=== PATIENT | female | born 1990 | race Caucasian/White ===

== ENCOUNTER 2023-04-05 15:12 | Outpatient (RCR) | payer OTHER, SELFPAY | END 2023-04-05 23:59 | disposition home or self-care (01) | LOC: RPT 15:12 | PROVIDERS: ATTENDING PHYSICIAN Family Medicine | DX: M76.31 Iliotibial band syndrome, right leg (principal); M67.952 Unspecified disorder of synovium and tendon, left thigh; Z87.81 Personal history of (healed) traumatic fracture; M67.951 Unspecified disorder of synovium and tendon, right thigh; M76.32 Iliotibial band syndrome, left leg; Z73.6 Limitation of activities due to disability | CPT/HCPCS: 97110; 97161 ==

== ENCOUNTER 2023-05-17 12:08 | Outpatient (RCR) | payer OTHER, SELFPAY ==
[2023-05-10 15:12] LABS: Vitamin B12 310 pg/ml (239-931)
== END 2023-05-17 23:59 | disposition home or self-care (01) ==
LOC: RPT 12:08
PROVIDERS: ATTENDING PHYSICIAN Family Medicine
DX: M76.31 Iliotibial band syndrome, right leg (principal); M76.32 Iliotibial band syndrome, left leg; Z87.81 Personal history of (healed) traumatic fracture; M67.952 Unspecified disorder of synovium and tendon, left thigh; M67.951 Unspecified disorder of synovium and tendon, right thigh
CPT/HCPCS: 36415; 82306; 82607; 97110

== ENCOUNTER 2023-06-22 03:49 | Observation (INO) | payer SELFPAY ==
[2023-06-21 21:32] VITALS: BP 141/93
[2023-06-21 21:55] LABS: % Basophils 0.2 % (0-2); % Eosinophils 3.1 % (0-6); % Immature Granulocytes 0.5 % (0-0.5); % Lymphocytes 3.2 % (20.5-51.1); % Monocytes 10.1 % (1.7-9.3); % Neutrophils 82.9 % (42.2-75.2); Absolute Eosinophils 0.3 10^3/uL (0-0.7); Absolute Lymphocytes 0.3 10^3/uL (1.2-3.4); Absolute Monocytes 0.9 10^3/uL (0.1-0.6); Absolute Neutrophils 7.3 10^3/uL (1.4-6.5); Hematocrit 42.4 % (37.0-47.0); Hemoglobin 14.6 g/dL (12.0-16.0); Mean Corp Hgb Conc. 34.4 g/dL (33.0-37.0); Mean Corpuscular Hgb 30.7 pg (27.0-31.0); Mean Corpuscular Volume 89.1 fL (81.0-99.0); Mean Platelet Volume 9.8 fL (7.4-10.4); Nucleated Red Blood Cells % 0 %; Platelet Count 218 10^3/uL (130-400); Red Blood Cell Count 4.76 10^6/uL (4.20-5.40); Red Cell Dist. Width 12.9 % (11.5-14.5); White Blood Cell Count 8.8 10^3/uL (4.8-10.8)
[2023-06-21 22:20] LABS: ALT (SGPT) 19 U/L (0-35); AST (SGOT) 31 U/L (14-36); Albumin 4.6 g/dl (3.5-5.0); Alkaline Phosphatase 66 U/L (38-126); Blood Urea Nitrogen 9 mg/dl (7-17); Calcium 9.3 mg/dl (8.4-10.2); Carbon Dioxide 24 mmol/L (22-30); Chloride 102 mmol/L (98-107); Glucose 108 mg/dl (70-99); HCG, Serum Qualitative Screen Negative; Lipase 32 U/L (23-300); Potassium 4.1 mmol/L (3.5-5.1); Sodium 133 mmol/L (135-145); Total Protein 7.4 g/dl (6.3-8.2); eGFR > 60.00
[2023-06-21 22:44] LABS: COVID-19 Antigen Negative (Negative)
--- NOTE | 2023-06-21 23:06 | ED.GENMED ---
History of Present Illness
General
Chief Complaint: Cold/Flu/URI Symptoms
Source: patient and family
Exam Limitations: none
Time Seen by Provider: 06/21/23 23:05
Travel History
Have you had any contact with someone who has COVID-19?: No
Do you have any symptoms of coronavirus? Fever > 100 degrees, chills, cough, shortness of breath, sore throat, loss of taste or smell, muscle aches, or headache?: Yes
Symptoms:: body aches, sore throat
History of Present Illness
History of Present Illness:
32-year-old female complaining of general body aches myalgias some sore throat some shortness of breath. Symptoms started in the last 24 hours. She does get some wheezing around her guinea pigs at times. Fever 101+ at home. Last Motrin at 4 PM.
Past History
Past History
ED Past Medical History: Psychiatric (Anxiety)
ED Past Surgical History: Orthopedic
Review of Systems
Review of Systems
All Other Systems: Not applicable
Constitutional: Reports fever
Respiratory: Reports cough and trouble breathing
Cardiac: Denies chest pain or syncope
ABD/GI: Reports vomiting; Denies abdominal pain
: Reports no symptoms
Phy Exam
Physical Exam
Physical Exam:
GENERAL: Alert and oriented. Mildly pale. Warm but mildly diaphoretic. Ambulated from the bathroom without difficulty but appears mildly tachypneic
EYE: Orbits normal.
NECK: Supple, no significant adenopathy.
ENT: Pharynx with mild diffuse erythema. No drooling or stridor. Speech normal
CARDIAC: Tachycardic and regular no murmur.
LUNGS: Mild diffuse expiratory wheezing
ABDOMEN: Soft, without focal tenderness or distention
NEUROLOGICAL: Alert and oriented , grossly non-focal
SKIN: Warm and dry, no rash or lesion, no discoloration, skin intact.
MUSCULOSKELETAL: No edema,no deformity.Good color
PSYCH: Normal and appropriate interaction.
Course
Orders/Labs/Results
Orders:
Orders
06/21/23 21:37
EKG [Electrocardiogram (*1)] Urgent
Reason for Study: Tachycardia
EKG- Treatment ONCE
06/21/23 21:38
Test Result ONCE
06/21/23 21:44
CBC/With Diff [Complete Blood Count/With Diff] Urgent
CMP [Comprehensive Metabolic Panel] Urgent
COVID-19 Antigen Urgent
Source: Nasal Swab
HCG, Serum Qualitative Screen Urgent
Lipase Urgent
Influenza A+B Rapid Molecular Urgent
[place] Source: Nasal Swab
Specimen Description:
06/21/23 23:16
Cardiac Monitoring- Treatment ONCE
IV Insert/Care/Rem.- Treatment PRN
0.9% Sodium Chloride 1000 ml [Nss] 1,000 ml IV BOLUS
Acetaminophen [Tylenol] 650 mg PO NOW STA
Dexamethasone Sod Phosphate [Decadron] 8 mg IV NOW STA
Ipratropium/Albuterol Sulfate [Duoneb] 3 ml INH R NOW STA
Ketorolac [Toradol] 15 mg IV NOW STA
Ondansetron Injectable [Zofran] 4 mg IV NOW STA
CR Chest - 2 Views Urgent
Comment:
Reason For Exam: wheezing cough
Pulse Ox/cont/shift [RESP] Stat
Quantity: 1
06/21/23 23:17
D-Dimer Urgent
06/22/23 01:01
0.9% Sodium Chloride 1000 ml [Nss] 1,000 ml IV BOLUS
Ketorolac [Toradol] 15 mg IV NOW STA
06/22/23 02:09
Ipratropium/Albuterol Sulfate [Duoneb] 3 ml INH R NOW STA
06/22/23 02:10
CefTRIAXone [Rocephin] 1,000 mg IV NOW STA
06/22/23 02:26
Doxycycline Hyclate [Vibramycin] 100 mg 0.9% Sodium Chloride 250 ml [Nss] 250 ml IV NOW
06/22/23 02:31
Urinalysis Reflex To Culture Urgent
Date Specimen was Collected: 06/22/23
Time Specimen was Collected: 01:12
Urine Microscopic Reflex Cult Urgent
06/22/23 03:04
Admit/Transfer Patient As Directed
Co-Sign Provider:
Level of Care: Observation services
Assign to:: Medical/Surgical
Physician / Group: Petar Toro - Hospitalists
Diagnosis: unspecified bronchitis with wheezing, mild respiratory distress
Reason for Hospitalization: unspecified bronchitis with wheezing, mild respiratory distress - IV steroids,
Abx, CT imaging
Expected length of stay greater than two midnights?: Yes
ELOS- Estimated Length of Stay in days: 3
I certify the patient meets the requirements for IP care: Yes
Code Status As Directed
Resuscitation Status: Full Code
06/22/23 03:53
Acetaminophen [Tylenol] 650 mg PO Q4HPRN PRN
Ipratropium/Albuterol Sulfate [Duoneb] 3 ml INH R Q4HPRN PRN
Ondansetron Injectable [Zofran] 4 mg IV Q6HPRN PRN
06/22/23 03:53
CT Chest W/o Iv Contrast Routine
Comment: smoker since age 15
Reason For Exam: further eval perihilar area
Activity As Directed
Activity Level: As Tolerated
Vital Signs As Directed
Frequency: Per unit guidelines
DX Deep Vein Thrombosis Video Routine
06/22/23 05:22
Basic Metabolic Panel IN AM
06/22/23 05:23
Complete Blood Count/No Diff IN AM
Procalcitonin IN AM
PCT Algorithmm Indication: Respiratory
06/22/23 Breakfast
Regular
At Your Request: Full Participation
06/22/23 08:00
Dexamethasone Sod Phosphate [Decadron] 4 mg IV Q8H
Famotidine [Pepcid] 20 mg PO BID
Ipratropium/Albuterol Sulfate [Duoneb] 3 ml INH R QID
Nicotine [Nicoderm Transdermal] 14 mg TRANSDERM DAILY
06/22/23 18:00
Enoxaparin Sodium [Lovenox] 40 mg SC QPM
Montelukast Sodium [Singulair] 10 mg PO QPM
Abnormal Lab Results
06/21/23 06/22/23
21:44 02:31
Absolute Neuts (auto) 7.3 H 10^3/uL
(1.4-6.5)
Absolute Lymphs (auto) 0.3 L 10^3/uL
(1.2-3.4)
Absolute Monos (auto) 0.9 H 10^3/uL
(0.1-0.6)
Neutrophils % 82.9 H %
(42.2-75.2)
Lymphocytes % 3.2 L %
(20.5-51.1)
Monocytes % 10.1 H %
(1.7-9.3)
Sodium 133 L mmol/L
(135-145)
Glucose 108 H mg/dl
(70-99)
Total Bilirubin 2.0 H mg/dl
(0.2-1.3)
Urine Ketones 2+ A
(Negative)
Ur Occult Blood Reflex 1+ A
(Negative)
Urine RBC 7-10 A /HPF
(0-2)
Urine Bacteria (Reflex) Few A
(Negative)
06/21/23 21:44
06/21/23 21:44
Vital Signs
Initial and Last Documented VS:
Initial Vital Signs
Temp Pulse Resp BP Pulse Ox
100.3 F 138 20 141/93 96
06/21/23 21:32 06/21/23 21:32 06/21/23 21:32 06/21/23 21:32 06/21/23 21:32
Last Documented Vital Signs
Temp Pulse Resp BP Pulse Ox
99 F 87 16 105/54 97
06/23/23 07:00 06/23/23 09:39 06/23/23 09:39 06/23/23 07:00 06/23/23 09:51
*Critical Care Note
Total Time (30-74mins, 75-104mins- exclusive of procedures): Not Applicable
Update Note
Update Note:
0200... Patient clearly improved but still with diffuse expiratory wheezing. Pulse ox reasonable but tachycardic in the 120s diffuse wheezing remains moderately uncomfortable. Warrants inpatient management. Likely viral however with questionable
infiltrate will cover with antibiotics
ED Attending Note
-
Portions of this chart may have been created with voice recognition software.� Occasional wrong word or��sound alike� substitutions may have occurred due to the inherent limitations of voice recognition software.
Discharge Plan
Departure
Patient Disposition: Admit
Date of Disposition: 06/22/23
Time of Disposition: 02:14
Presentation/result/management discussed w/ accepting MD/DO: Hospitalist
Discharge Problem:
Severe bronchitis
Interventions
Interventions:
*Risk Screen - Suicide Last Done: 06/21/23 23:35
*General Assessment Last Done: 06/21/23 23:35
*Neglect/Abuse Screening Last Done: 06/21/23 23:35
ED- Fall Risk Assessment Last Done: 06/21/23 23:35
*ED COVID-19 Vaccine History Last Done: 06/21/23 23:35
*Nursing Disposition Last Done: 06/22/23 19:37
ED- Pulmonary Assessment Last Done: 06/22/23 11:23
Discharge Date and Time
Discharge Date/Time: 06/22/23 19:38
[2023-06-21] MEDS: ZOFRAN 4 MG IV (23:41)
[2023-06-21] MEDS: TORADOL 15 MG IV (23:43)
[2023-06-21] MEDS: NSS 1000 IV (23:43)
[2023-06-21] MEDS: DUONEB 3 ML INH (23:48)
[2023-06-21] MEDS: DECADRON 8 MG IV (23:48)
[2023-06-21 23:55] VITALS: BP 127/87
[2023-06-21 23:56] VITALS: BMI 25.3
[2023-06-21] MEDS: TYLENOL 650 MG PO (23:59)
[2023-06-22] VITALS (7 sets, daily range): BP systolic 104–134; BP diastolic 61–88; BMI 24.9
[2023-06-22 00:44] LABS: D-Dimer < 0.27 ug/mlFEU (0.00-0.50)
[2023-06-22] MEDS: NSS 1000 IV (01:20)
[2023-06-22] MEDS: TORADOL 15 MG IV ×2 (01:20→07:03)
[2023-06-22] MEDS: DUONEB 3 ML INH ×5 (02:22→19:39)
[2023-06-22] MEDS: ROCEPHIN 1000 MG IV (02:24)
[2023-06-22] MEDS: VIBRAMYCIN 260 MG IV (02:41)
--- NOTE | 2023-06-22 02:56 | HPS.HSE ---
Addendum entered and electronically signed by Petar Toro MD 06/27/23 08:09:
Allergies
Allergy/AdvReac Type Severity Reaction Status Date / Time
lamotrigine Allergy Rash Verified 06/21/23 21:36
Home Medications
cholecalciferol (vitamin D3) 25 mcg (1,000 unit) tablet 25 - 75 mcg PO DAILY PRN supplement 06/22/23
ibuprofen 200 mg capsule (Advil Liqui-Gel) 400 mg PO BIDPRN PRN mild pain 06/22/23
therapeutic multivitamin 1 tab PO .AFTERNOON Supplement 06/22/23
albuterol sulfate 90 mcg/actuation aerosol inhaler 2 puff inhalation Q6H PRN shortness of breath or wheezing #8.5 grams 06/23/23
doxycycline monohydrate 100 mg capsule 100 mg PO BID #8 caps 06/23/23
ondansetron 4 mg disintegrating tablet 4 mg PO Q8H PRN nausea and vomiting 5 days #15 tabs 06/23/23
oxycodone 5 mg tablet 5 mg PO [id number] PRN Mod sev pain #10 tabs 06/23/23
prednisone 10 mg tablet See Rx Instructions .Route .COMPLEX #30 tabs 06/23/23
Original Note:
Family Physician
-
Family Physician: Jenny Saldana
Chief Complaint
-
cold symptoms
History of Present Illness
32 y/o, active smoker since age 15, hx of anxiety, hx of 'allergies to my guinea pig pets' presents to ER for 1 day history of generalized body aches. Associated symptoms include myalgias, SOB and sore throat and headache. She reports wheezing but
also states she develops wheezing around her guinea pigs. She reports fever 101 at home; took Motrin with relief. No GI complaints. No other complaints.
In ER, given several rounds of nebs, IV steroids, IV abx but remains dyspneic and wheezing - admitted.
Medical History
Past Medical History
Past Medical History: Reports Psychiatric (anxiety, possible asthma)
Past Surgical History: Reports None
Social History
Tobacco: Smoker
Alcohol: None
Drug: None
Employment: Employed
Family History
Family History: Not pertinent
Allergies / Home Medications
Allergies reflects when Allergies were last updated in [employer].
Home Medications with original date entered in [employer]
Allergy/Medication List:
Allergies
Allergy/AdvReac Type Severity Reaction Status Date / Time
lamotrigine Allergy Rash Verified 06/21/23 21:36
Review of Systems
-
A 12 point ROS was completed and negative except as noted: Yes
Physical Exam
Vital Signs
Vital Signs
Temp Pulse Resp BP Pulse Ox
100.3 F 129 21 121/77 96
06/21/23 21:32 06/22/23 02:45 06/22/23 02:45 06/22/23 01:00 06/22/23 00:00
Physical Exam
General: Respiratory Distress (mild)
HEENT: NormoCephalic and Anicteric
Respiratory: Wheezes; No Rales or Rhonchi
Cardiac: S1/S2, Regular Rhythm and Tachycardia (post neb)
GI: Soft and Non Tender
Musculoskeletal: No Edema
Neuro: AO x 3
Psych: Calm
Laboratory Results
-
06/21/23 21:44
06/21/23 21:44
Laboratory Results
Total Bilirubin 2.0 mg/dl (0.2-1.3) H 06/21/23 21:44
AST 31 U/L (14-36) 06/21/23 21:44
ALT 19 U/L (0-35) 06/21/23 21:44
Alkaline Phosphatase 66 U/L (38-126) 06/21/23 21:44
Lipase 32 U/L (23-300) 03/05/24 21:44
Data Reviewed
-
Lab Data: Labs Reviewed by me
Impression/Plan
-
Assessment:
mild respiratory distress
Wheezing
- ddx: asthmatic bronchitis vs viral bronchitis vs PNA vs other
- COVID/Flu negative; but only 24 hours of symptoms to date, may consider repeating
- CXR With possible subhilar PNA - started on Rocephin, Doxy in ER - will hold further until AM procal resulted
- nebs prn and standing
- IV Steroids to continue; still currently wheezing
- add Montelukast for possible allergic component. Would benefit from OP Allergy eval if allergic to some of her animals.
- given extensive smoking history since age 15, will obtain CT chest to further eval subhilar area
Active tobacco smoker
- cessation encouraged
Anxiety
DVT ppx: Lovenox
Code: Full
[2023-06-22 03:12] LABS: Urine Albumin Negative (Neg - Trace); Urine Bilirubin Negative (Negative); Urine Character Clear (Clear); Urine Color Yellow; Urine Glucose Negative (Negative); Urine Ketone 2+ (Negative); Urine Leukocyte Negative (Negative); Urine Nitrite Negative (Negative); Urine Occult Blood 1+ (Negative); Urine Urobilinogen Negative (Neg - 1+)
[2023-06-22 03:34] LABS: Urine Bacteria Few (Negative); Urine White Cell 0-2 /HPF (0-5)
[2023-06-22 05:38] LABS: Hematocrit 39.2 % (37.0-47.0); Hemoglobin 13.5 g/dL (12.0-16.0); Mean Corp Hgb Conc. 34.4 g/dL (33.0-37.0); Mean Corpuscular Hgb 30.8 pg (27.0-31.0); Mean Corpuscular Volume 89.5 fL (81.0-99.0); Mean Platelet Volume 10.2 fL (7.4-10.4); Platelet Count 197 10^3/uL (130-400); Red Blood Cell Count 4.38 10^6/uL (4.20-5.40); Red Cell Dist. Width 12.9 % (11.5-14.5); White Blood Cell Count 7.1 10^3/uL (4.8-10.8)
[2023-06-22] MEDS: TYLENOL 650 MG PO (06:02)
[2023-06-22 06:03] LABS: Blood Urea Nitrogen 7 mg/dl (7-17); Calcium 8.7 mg/dl (8.4-10.2); Carbon Dioxide 17 mmol/L (22-30); Chloride 108 mmol/L (98-107); Estimated Creatinine Clearance 111 ml/min; Glucose 184 mg/dl (70-99); Potassium 3.8 mmol/L (3.5-5.1); Sodium 139 mmol/L (135-145); eGFR > 60.00
[2023-06-22] MEDS: FLUSH (NSS) 1 FLUSH IV (06:03)
[2023-06-22] MEDS: ZOFRAN 4 MG IV (06:06)
[2023-06-22 06:19] LABS: Procalcitonin < 0.05 ng/ml (0.0-0.25)
[2023-06-22] MEDS: NICODERM TRANSDERMAL 14 MG TRANSDERM (07:46)
[2023-06-22] MEDS: PEPCID 20 MG PO ×2 (07:46→20:35)
[2023-06-22] MEDS: DECADRON 4 MG IV ×2 (07:46→16:50)
[2023-06-22] MEDS: VIBRAMYCIN 100 MG PO ×2 (08:21→20:35)
--- NOTE | 2023-06-22 08:33 | CON.PUL ---
Consultation
Consultation Request
Date/Time Consultation Requested: 06/22/23- AM
Date/Time Consultation Performed: , 06/22/23- AM
Requesting Provider: hospitalist
Performing Provider: , Dr. Simental
Reason for Consultation: , shortness of breath
Medical History
-
Chief Complaint: , shortness of breath
History of Present Illness:
32-year-old smoking female with history of anxiety and allergies to her guinea pigs presented with generalized body aches. She refers to as reaction to her anxiety as well as chest tightness, wheezing, shortness of breath as well as a
fever-pulmonary consulted for asthma exacerbation 06/22/23. . She has never been told she had asthma, but, since she got her gait takes. She feels like she is allergic to him. She developed shortness of breath, wheezing, nonproductive cough,
dyspnea on exertion. She also had some fevers. She had some muscle aches around her neck and back, which she related to anxiety. She does not complain of any abdominal pain, nausea, vomiting, leg swelling or weakness.
Past Medical History
Past Medical History: None ( Allergies. Anxiety. Suspected asthma.)
Social History
Tobacco: Smoker ( Down to 4 cigarettes nightly)
Alcohol: None
Living: With Family
Occupational Exposures: . No known asbestos exposure
Environmental Exposures: . No known tuberculosis exposure
Family History
Family History: Reviewed & Not Pertinent
Allergies / Home Medications
Allergies
Allergy/AdvReac Type Severity Reaction Status Date / Time
lamotrigine Allergy Rash Verified 06/21/23 21:36
Home Medications
Medication Instructions Recorded Confirmed Last Taken Type
No Meds [No Current Medications] 06/22/23 06/22/23 Unknown History
Review of Systems
-
Unable to Obtain full review of systems at this time due to: Other ( per HPI)
Vitals / Labs / Diagnostic Testing
Vital Signs
Temp Pulse Resp BP Pulse Ox
99.1 F 78 18 128/82 96
06/22/23 07:05 06/22/23 08:27 06/22/23 08:27 06/22/23 07:05 06/22/23 08:27
Lab Data
06/22/23 05:23
06/22/23 05:22
Microbiology
06/21/23 21:44 Nasal Swab Influenza Types A & B (NEHA) - Final
Negative for Influenza A & B, NAAT
Negative results must be combined with clinical observations
and patient history.
Nucleic Acid Amplification test (NAAT)performed on the
[employer] platform.
Diagnostic Testing:
Physical Exam
-
Exam:
HEENT atraumatic normocephalic and anicteric. Heart was regular without murmur. . Chest with diminished breath sounds, prolonged expiratory time and expiratory wheezes Integument without rashes or icterus. Neurologic exam without weakness or
numbness. Abdomen soft and nondistended. The patient had no JVD, cyanosis, clubbing or edema.
Assessment
-
32-year-old smoking female with history of anxiety and allergies to her guinea pigs presented with generalized body aches. She refers to as reaction to her anxiety as well as chest tightness, wheezing, shortness of breath as well as a
fever-pulmonary consulted for asthma exacerbation 06/22/23.
Asthma with acute exacerbation..
Absolute eosinophils-300
Bronchitis
Anxiety.
Conditions present prior to admission:
Allergies
Active smoker.
Asthma suspected
Plan
Respiratory decompensation, likely due to underlying asthma with acute mild to moderate exacerbation.
Supplemental oxygen if needed.
Nebulizers.
Mucolytic's
Decadron 4 mg IV every 8. Hours.
Singulair continues
Doxycycline added for atypical coverage
Smoking and vaping cessation
Nicotine patch.
Anxiolytics per primary team.
DVT prophylaxis-on Lovenox.
Nutrition
Early mobilization.
Outpatient pulmonary/allergy follow-up and workup including ongoing smoking cessation counseling, follow-up CT chest, PFTs, allergy testing, etc.
Data:
Chest x-ray 06/21/23-NAD.
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
Data Reviewed
-
Radiology: Report reviewed by me
CT Scan: Image personally visualized and interpreted and Report reviewed by me
Medical Tests (Nuc Med, Echo etc): Report reviewed by me
Labs: Labs reviewed by me
Old Records: Reviewed
Total Time Spent with Patient (in minutes): 55
--- NOTE | 2023-06-22 08:38 | W.PN.UPDATE ---
Update Note
Progress Note Update
seen and examined
Non billable note
Off of o2 - patient took herself her off. maintain on steroids
CT chest images reviewed, have bilateral small ground glass opacities -pt denies vaping- smokes cig only - start back on doxycycline for atypical coverage
Pulmo consulted for help as well.
Nausea - does not feel can have food, will try different nausea meds if not better. diet as tolerated at this point
Back pain - lumbago, denies trauma/spinal sx - ordered extra strength tylenol and tramadol
--- NOTE | 2023-06-22 08:46 | EDRN ---
Assumed care. Pt is in ER 18 as a medsurg HOLD level of care. She is AAOx4, appearts anxious. No resp distress noted. VS stable. INT noted Lt arm, intact. Complaining of generalized pain. Received Toradol at change of shift and at 0800 when I went
in to give AM meds, was lying quietly in the dark room. Given AM care supplies, breakfast ordered. Seen by hospitalist.
Lungs- sl decreased, no wheezes or crackles
HR reg.
On room air
Ambulatory in the room with steady gait
--- NOTE | 2023-06-22 09:22 | EDRN ---
Calls nurse; tearful : ' I don't know why I feel this way, it feels like my body is trying to kill me'. Reasurred. Pharmacy is actively verifying pain meds. Zofran not available until 1200. Did eat breakfast though
[2023-06-22] MEDS: ULTRAM 25 MG PO (09:41)
--- NOTE | 2023-06-22 09:43 | EDRN ---
pt removed nicoderm patch as she felt it was making her nauseated, provider aware.
--- NOTE | 2023-06-22 10:25 | EDRN ---
PT noting continuing pain post Toradol of 6/10. Was given Tramadol 25 mg At 0940. She states it has not helped at all. Her pain level is still 6/10. She has persistent nausea (dose of Zofran given at 0600 as well). She wants something else. Provider
texted
[2023-06-22] MEDS: REGLAN 5 MG IV ×2 (10:45→21:27)
--- NOTE | 2023-06-22 10:50 | EDRN ---
Reglan administered for nausea. PT reminded that pain meds are ordered depending on pt's level of pain, so I asked her to not ' worry about being perceived as dramatic ( her words), and to be honest and if she's having severe pain, to say so, as I
want her to be treated adequately.
She says her pain actually an 8.
[2023-06-22] MEDS: ROXICODONE 5 MG PO ×3 (10:52→21:21)
--- NOTE | 2023-06-22 13:27 | CM ---
CM met with mother of patient who was sleeping in ED room. Patient and mother live in one level home. Patient works as a front line leader.
She is independent but has been having trouble standing for her full shift. She was seeing PT at .
PCP Inna Saldana [place] [facility] [place] [facility] Even though Observation no letter given as no insurance.
PHarmacy: [facility] in [place].
PLAN: home no needs.
[2023-06-22] MEDS: TYLENOL 1000 MG PO (14:59)
[2023-06-22] MEDS: LOVENOX 40 MG SC (16:51)
[2023-06-22] MEDS: SINGULAIR 10 MG PO (16:52)
--- NOTE | 2023-06-22 19:46 | PTCARENOTE ---
Patient received from the ED via wheelchair. Patient AAOx3. VSS. Patient walked into the room. Steady on feet. Patient made comfortable in the room. Call gudino is within reach.
[2023-06-23] MEDS: DECADRON 4 MG IV ×2 (00:29→10:34)
[2023-06-23] MEDS: ROXICODONE 5 MG PO (01:54)
[2023-06-23] MEDS: TYLENOL 1000 MG PO ×2 (03:57→13:23)
[2023-06-23 07:00] VITALS: BP 105/54
[2023-06-23 07:21] LABS: Hematocrit 39.8 % (37.0-47.0); Hemoglobin 13.9 g/dL (12.0-16.0); Mean Corp Hgb Conc. 34.9 g/dL (33.0-37.0); Mean Corpuscular Hgb 30.9 pg (27.0-31.0); Mean Corpuscular Volume 88.4 fL (81.0-99.0); Mean Platelet Volume 10.5 fL (7.4-10.4); Platelet Count 207 10^3/uL (130-400); Red Cell Dist. Width 13.2 % (11.5-14.5); White Blood Cell Count 8.2 10^3/uL (4.8-10.8)
[2023-06-23 08:14] LABS: Blood Urea Nitrogen 9 mg/dl (7-17); Carbon Dioxide 22 mmol/L (22-30); Chloride 103 mmol/L (98-107); Estimated Creatinine Clearance 111 ml/min; Glucose 120 mg/dl (70-99); Potassium 4.3 mmol/L (3.5-5.1); Sodium 137 mmol/L (135-145); eGFR > 60.00
--- NOTE | 2023-06-23 08:50 | W.PN.HOSP.TC ---
Today's Communication/Plan
-
d/c home
Assessment / Plan
Assessment / Plan
Acute bronchitis
Suspected asthma and flare up
Small ground glass opacities
- COVID/Flu negative
- Ct chest reviewed -diffuse small groundglass opacities. -Patient denies vaping.
- Discussed with pulmonology. Discharging with steroid taper/inhaler/doxycycline
Active tobacco smoker
- cessation encouraged
Back pain
- providing dose of tramadol, did not help , given oxycodone
Nausea
- symptomatic care, tolerating diet
Anxiety
DVT ppx: Lovenox
Code: Full
More than 30 minutes spent in discharge including
Final examination of the patient
Summarizing hospital stay
Instructions for continuing care to all relevant caregivers
Preparation of discharge records, prescriptions, and referral forms
Total time spent (in minutes): 38 mins
Anticipated Discharge: Today
Subjective/Interval History
-
Date of Service: June 23, 2023
breathing better
not on o2
Objective Data
-
Labs:
Laboratory Results
06/23/23
06:19
WBC 8.2
Hgb 13.9
Hct 39.8
Plt Count 207
Sodium 137
Potassium 4.3
Chloride 103
Carbon Dioxide 22
BUN 9
Creatinine 0.6
Glucose 120 H
Calcium 9.0
Vital Signs:
Vital Signs
Temp Pulse Resp BP Pulse Ox
99 F 103 18 105/54 99
06/23/23 07:00 06/23/23 07:00 06/23/23 07:00 06/23/23 07:00 06/23/23 07:00
I&O
06/22/23 06/23/23 06/24/23
06:59 06:59 06:59
Intake Total 720 / 720
Balance 720 / 720
Review of Systems
-
Respiratory: Reports No Symptoms
Cardiac: Reports No Symptoms
Abdomen/GI: Reports No Symptoms
Physical Exam
-
General: No Apparent Distress and Comfortable
HEENT: Negative Oxygen
Respiratory: Wheezes (minimal)
Cardiac: Regular Rhythm and S1/S2; Negative Murmur or Rub
GI: Soft
Musculoskeletal: No Edema
Neuro: Awake, Alert, Oriented, No Motor Deficits and Nonfocal/Grossly Intact
Psych: Calm
--- NOTE | 2023-06-23 08:55 | W.DCSUMMARY ---
Discharge Summary
Discharge Data
Date of Admission: 06/22/23
Date of Discharge: 06/23/23
-
Pending Results: No
Hospital Course
Discharging Physician : Dr Robe Cannon
Disposition : To home
Primary care physician : Dr Jenny Saldana
Principal Discharge diagnosis :
Acute bronchitis
Possible asthma and flareup
Community-acquired pneumonia
Back pain
Nausea
Chronic Discharge diagnosis :
Tobacco abuse
Anxiety
Hospital Course :
Patient is a 32-year-old female with above-mentioned past medical history came to ER with new onset of shortness of breath, sore throat, cough and headache. Patient is active smoker and on examination was noted to having significant wheezing
bilateral lung mcconnell. Patient also had reported fever of 101 at home. Although patient does not have any previous diagnosis of any pulmonary problems clinical was felt to having possible asthma and flareup. Patient was started on steroids and
nebulizer therapies for chest x-ray was done which was showing questionable perihilar opacities. A follow-up CT chest was done which ruled out any perihilar abnormalities, did show significant bronchitis and diffuse bilateral faint opacities.
Pulmonology was involved in care and patient was started on doxycycline for atypical coverage. Pulmonology was involved in care and evaluated patient. Recommended patient to follow-up in office for further testing. Patient symptoms improved in 48
hours and was discharged on tapering course of steroid/inhaler and doxycycline.
Patient also had worsening of lower back pain, usually uses Tylenol. Needed to be given tramadol and oxycodone. Short course of oxycodone provided at discharge. Patient also had some nausea without vomiting and improved with symptomatic care.
Patient instructed to follow-up with pulmonology in office postdischarge
Important imaging findings :
CT chest
1. � SEVERE BILATERAL BRONCHITIS and small regions of ground-glass opacity in the right middle lobe, left upper lobe, and right upper lobe. Diagnostic possibilities are (1) acute infection, (2) vaping-associated lung disease (e-cigarette or vaping
product use-associated lung injury (EVALI), or (3) other inflammatory lung disease.
2. � Mild mediastinal lymphadenopathy.
3. � Thoracic Scheuermann's disease.
Procedure findings :
None
Discharge Plan
-
Patient Disposition: Home (Routine Discharge)
Discharge Diagnosis/Procedures: Acute bronchitis, suspected asthma flare up
Condition: Fair
Diet: Regular
Activity: As tolerated
Driving Restrictions: As prior to admission
Bathing Restrictions: OK to Shower
Referrals:
Jenny Saldana NP [Family Provider] - in one week
Willian Simental MD [Active] - in one to two weeks
(or [employer]
Eventual PFTs, follow-up CT chest, allergy testing, smoking cessation counseling)
Prescriptions:
New
prednisone 10 mg Tablet
See Rx Instructions .ROUTE .COMPLEX Qty: 30 0RF
Rx Instructions:
Take By Mouth:
40 mg daily x3 days, 30 mg daily x3 days,
20 mg daily x3 days, 10 mg daily x3 days.
doxycycline monohydrate 100 mg capsule
100 mg PO BID Qty: 8 0RF
albuterol sulfate 90 mcg/actuation HFA aerosol inhaler
2 puff inhalation Q6H PRN (Reason: shortness of breath or wheezing) Qty: 8.5 0RF
oxycodone 5 mg tablet
5 mg PO [id number] PRN (Reason: Mod sev pain) Qty: 10 0RF
ondansetron 4 mg tablet,disintegrating
4 mg PO Q8H PRN (Reason: nausea and vomiting) 5 Days Qty: 15 0RF
Continued
ibuprofen [Advil Liqui-Gel] 200 mg Capsule
400 mg PO BIDPRN PRN (Reason: mild pain)
therapeutic multivitamin Tablet
1 tab PO .AFTERNOON
cholecalciferol (vitamin D3) 25 mcg (1,000 unit) Tablet
25 - 75 mcg PO DAILY PRN (Reason: supplement)
Discharge Orders:
Discharge Patient (As Directed); Ordered 06/23/23
Ordered By: Robe Cannon
[2023-06-23] MEDS: DECADRON IV ×2 (08:59→09:07)
[2023-06-23] MEDS: PEPCID 20 MG PO (09:00)
[2023-06-23] MEDS: NICODERM TRANSDERMAL TRANSDERM ×2 (09:00→10:17)
[2023-06-23] MEDS: FLUSH (NSS) IV (09:01)
[2023-06-23] MEDS: VIBRAMYCIN 100 MG PO (09:01)
[2023-06-23] MEDS: DUONEB 3 ML INH (09:37)
--- NOTE | 2023-06-23 09:51 | W.PN.PUL.V3 ---
Today's Communication / Plan
-
.
We not she
Increase activity.
Antibiotics.
Prednisone taper.
Outpatient pulmonary follow-up
Assessment
-
32-year-old smoking female with history of anxiety and allergies to her guinea pigs presented with generalized body aches. She refers to as reaction to her anxiety as well as chest tightness, wheezing, shortness of breath as well as a
fever-pulmonary consulted for asthma exacerbation 06/22/23.
Asthma with acute exacerbation..
Absolute eosinophils-300
Bronchitis
Anxiety.
Conditions present prior to admission:
Allergies
Active smoker.
Asthma suspected
Plan
Respiratory decompensation, likely due to underlying asthma with acute mild to moderate exacerbation.
Supplemental oxygen if needed.
Nebulizers.
Mucolytic's.
Change Decadron to prednisone with taper
Singulair continues
Doxycycline added for atypical coverage
Smoking and vaping cessation
Nicotine patch.
Anxiolytics per primary team.
DVT prophylaxis-on Lovenox.
Nutrition
Early mobilization.
Outpatient pulmonary/allergy follow-up and workup including ongoing smoking cessation counseling, follow-up CT chest, PFTs, allergy testing, etc.
Data:
Chest x-ray 06/21/23-NAD.
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
Subjective Data
-
Date of Service:
Date of Service: June 23, 2023
Chief Complaint: Pulmonary Follow Up and Dyspnea Follow Up
Subjective:
Feels better, less wheezy, no chest pain or abdominal pain, muscle tightness from anxiety, improved
Review of Systems
General: Other ( per HPI)
Objective Data
Data Reviewed
Vital Signs / I&O:
Vital Signs
Temp Pulse Resp BP Pulse Ox
99 F 87 16 105/54 97
06/23/23 07:00 06/23/23 09:39 06/23/23 09:39 06/23/23 07:00 06/23/23 09:39
Intake and Output
06/22/23 06/23/23 06/24/23
06:59 06:59 06:59
Intake Total 720 / 720
Balance 720 / 720
SaO2: 97
Labs/Micro/Reports
Lab Data
06/23/23 06:19
06/23/23 06:19
Microbiology
06/21/23 21:44 Nasal Swab Influenza Types A & B ([facility]) - Final
Negative for Influenza A & B, NAAT
Negative results must be combined with clinical observations
and patient history.
Nucleic Acid Amplification test (NAAT)performed on the
[employer] platform.
[2023-06-23] MEDS: REGLAN 5 MG IV (10:34)
[2023-06-23] MEDS: FLUSH (NSS) 2 FLUSH IV (10:35)
== END 2023-06-23 15:02 | disposition home or self-care (01) ==
LOC: 4 EAST ACU 03:49
PROVIDERS: Emergency Medicine; ADMITTING PHYSICIAN Internal Medicine; ATTENDING PHYSICIAN Hospitalist; CONSULT PHYSICIAN Internal Medicine Critical Care Medicine; FAMILY PHYSICIAN Nurse Practitioner Adult Health
DX: J18.9 Pneumonia, unspecified organism (principal); J20.9 Acute bronchitis, unspecified; F17.210 Nicotine dependence, cigarettes, uncomplicated; F41.9 Anxiety disorder, unspecified; M54.50 Low back pain, unspecified; Z11.52 Encounter for screening for COVID-19; Z79.899 Other long term (current) drug therapy
CPT/HCPCS: 71046; 71250; 80048; 80053; 81003; 81015; 83690; 84145; 84703; 85025; 85027; 85379; 87502; 87811; 93005; 94640; 94760; 96361; 96365; 96375; 96376; 99285; 99406; G0378

== ENCOUNTER → 2023-07-19 14:42 | Outpatient (REF) | payer OTHER, SELFPAY ==
[2023-07-19 15:33] LABS: Vitamin D, 25-OH*** 35.6 ng/mL (30-80)
[2023-07-19 16:07] LABS: Vitamin B12 349 pg/ml (239-931)
== END ==
LOC: REG 14:42
PROVIDERS: ATTENDING PHYSICIAN Nurse Practitioner Acute Care
DX: E55.9 Vitamin D deficiency, unspecified (principal); E53.8 Deficiency of other specified B group vitamins
CPT/HCPCS: 36415; 82306; 82607

== ENCOUNTER → 2023-10-28 10:47 | Outpatient (REF) | payer OTHER, SELFPAY ==
[2023-10-28 13:50] LABS: TSH Reflex To Free T4 1.73 uIU/ml (0.47-4.68)
== END ==
LOC: CLINIC 10:47
PROVIDERS: ATTENDING PHYSICIAN Student in an Organized Health Care Education/Training Program
DX: M79.89 Other specified soft tissue disorders (principal)
CPT/HCPCS: 36415; 84443